=== PATIENT | female | born 1990 | race Caucasian/White ===

== ENCOUNTER 2020-12-09 11:09 | Outpatient (CLI) | payer BC, SELFPAY ==
[2020-12-09 11:40] LABS: Basophils Percent Auto 0.2 % (0.2-1.2); Eosinophils Absolute Auto 0.1 K/mm3 (0-0.3); Eosinophils Percent Auto 0.6 % (0-4.4); Hematocrit 33.2 % (37.0-47.0); Hemoglobin 10.9 g/dL (12.0-15.0); Immature Granulocyte Absolute 0.07 K/mm3 (0.00-0.031); Immature Granulocyte Percent A 0.8 % (0-0.5); Lymphocytes Absolute Auto 1.61 K/mm3 (0.9-3.2); Lymphocytes Percent Auto 18.1 % (18.3-44.2); Mean Corpuscular HGB Conc 32.8 g/dl (32-36); Mean Corpuscular Hemoglobin 28.9 pg (26-34); Mean Corpuscular Volume 88.1 fl (80-100); Mean Platelet Volume 10.3 fl (7.4-10.4); Monocytes Absolute Auto 0.8 K/mm3 (0.1-0.6); Monocytes Percent Auto 8.7 % (2.6-8.5); Neutrophils Absolute Auto 6.4 K/mm3 (1.3-6.7); Neutrophils Percent Auto 71.6 % (45.5-73.1); Platelet Count Result 206 k/mm3 (150-375); Red Blood Count 3.77 M/mm3 (4.2-5.4); Red Cell Distribution Width 12.9 % (11.5-14.5); White Blood Count 8.9 K/mm3 (4.5-10.0)
[2020-12-09 12:34] LABS: HIV 1/2 Ab P24 Ag Result Negative (Negative)
[2020-12-12 10:35] LABS: Rapid Plasma Reagin Non-Reactive (NonReactive)
== END 2020-12-09 11:10 | disposition home or self-care (01) ==
LOC: ANHLAB 11:11
PROVIDERS: PCP Family Medicine; Visit Provider Student in an Organized Health Care Education/Training Program
DX: Z34.90 Encounter for supervision of normal pregnancy, unspecified, unspecified trimester (principal)
CPT/HCPCS: 36415; 85025; 86592; 86703; G0432

== ENCOUNTER 2021-01-16 13:18 | Inpatient (IN) | payer BC, SELFPAY ==
[2021-01-16] VITALS (172 sets, daily range): BP systolic 59–137; BP diastolic 27–124; PULSE 54–247; TEMP 36.2–36.6; O2SAT 87–100; BMI 31.6
--- NOTE | 2021-01-16 14:15 | LDADM ---
This patient, Isabelle Shields, was admitted to Labor/Delivery/Recovery 109 on 01/16/21 at 13:18. Plans for labor, pain management and were discussed with patient. Patient/family oriented to hospital policies and general routines including ID bracelet, bed and alarms, visiting hours, pain management, procedures, bathroom and other care routines, personal items, smoking policy, room service/diet and guest tray routines, security routines, and visiting hours. Patient/Family are encouraged to report perceived risks to care and to ask questions if they do not understand what they are told or what they should do. See OBIX for further documentation.
[2021-01-16 14:32] LABS: Basophils Percent Auto 0.1 % (0.2-1.2); Eosinophils Percent Auto 0.3 % (0-4.4); Hematocrit 33.2 % (37.0-47.0); Hemoglobin 10.8 g/dL (12.0-15.0); Immature Granulocyte Absolute 0.13 K/mm3 (0.00-0.031); Immature Granulocyte Percent A 1.4 % (0-0.5); Lymphocytes Absolute Auto 1.54 K/mm3 (0.9-3.2); Lymphocytes Percent Auto 17.1 % (18.3-44.2); Mean Corpuscular HGB Conc 32.5 g/dl (32-36); Mean Platelet Volume 11.1 fl (7.4-10.4); Monocytes Absolute Auto 0.6 K/mm3 (0.1-0.6); Monocytes Percent Auto 6.9 % (2.6-8.5); Neutrophils Absolute Auto 6.7 K/mm3 (1.3-6.7); Neutrophils Percent Auto 74.2 % (45.5-73.1); Platelet Count Result 212 k/mm3 (150-375); Red Blood Count 3.86 M/mm3 (4.2-5.4); Red Cell Distribution Width 14.2 % (11.5-14.5)
[2021-01-16] MEDS: LACTATED RINGERS 1,000 ML 125 ML IV CONT ×5 (15:56→21:49)
[2021-01-16] MEDS: OXYTOCIN 30 UNITS/NS 500 ML 30 UNITS/500 ML BAG IV CONT (15:56)
--- NOTE | 2021-01-16 17:02 | WPDANESEPP ---
Anes - Eval Pre Procedure Procedure: Labor epidural Date/Time: 01/16/21 17:02 Surgeon: Issac Preop Diagnosis: Abd pain with contractions Pre Op Diagnosis: Labor Patient Data Age: 30 Gender: F Height: 1.6 m Weight: 81 kg Last Vital Signs Temp 97.4 F L 01/16/21 17:02 Pulse 86 01/16/21 17:00 BP 112/72 01/16/21 17:00 Pulse Ox 100 01/16/21 17:00 Allergies Allergy/AdvReac Type Severity Reaction Status Date / Time No Known Allergies Allergy Verified 01/13/21 12:37 Home Medications Medication Instructions Recorded Confirmed Type docusate sodium 100 mg capsule 100 mg PO DAILY 06/03/20 01/13/21 History prenat.vits,hilton,bpl-[id number] 1 tablet PO DAILY 06/03/20 01/13/21 History Laboratory Tests 01/16/21 01/16/21 01/16/21 13:56 13:56 13:56 WBC 9.0 K/mm3 K/mm3 (4.5-10.0) RBC 3.86 M/mm3 L M/mm3 (4.2-5.4) Hgb 10.8 g/dL L g/dL (12.0-15.0) Hct 33.2 % L % (37.0-47.0) MCV 86.0 fl fl (80-100) MCH 28.0 pg pg (26-34) MCHC 32.5 g/dl g/dl (32-36) RDW 14.2 % % (11.5-14.5) Plt Count 212 k/mm3 k/mm3 (150-375) MPV 11.1 fl H fl (7.4-10.4) Immature Gran % (Auto) 1.4 % H % (0-0.5) Neut % (Auto) 74.2 % H % (45.5-73.1) Lymph % (Auto) 17.1 % L % (18.3-44.2) [place] % (Auto) 6.9 % % (2.6-8.5) Eos % (Auto) 0.3 % % (0-4.4) Baso % (Auto) 0.1 % L % (0.2-1.2) Lymph # (Auto) 1.54 K/mm3 K/mm3 (0.9-3.2) [place] # (Auto) 0.6 K/mm3 K/mm3 (0.1-0.6) Eos # (Auto) 0.0 K/mm3 K/mm3 (0-0.3) Baso # (Auto) 0.0 K/mm3 K/mm3 (0.0-0.1) Abs Immat Gran (auto) 0.13 K/mm3 H K/mm3 (0.00-0.031) Absolute Neuts (auto) 6.7 K/mm3 K/mm3 (1.3-6.7) Absolute Nucleated RBC 0.0 K/mm3 K/mm3 (0.0-0.012) Nucleated RBC % 0.0 % % (0.0-0.2) RPR Pending Blood Type O Positive Antibody Screen Negative Patient hx anesthesia problems: none Family hx anesthesia problems: none PMFSH Past Medical History Medical History Active labor at term Encounter for supervision of normal first in third trimester Irregular contractions Normal spontaneous vaginal delivery Prolonged latent phase of labor Surgical History Surgical History [place] teeth removed Family History Family History Grandparent Family history of malignant neoplasm of breast Family history of Alzheimer's disease Heart disease Social History Social History Smoking status: Never smoker Second hand tobacco smoke exposure: No Alcohol intake: current Substance use: never Spiritual care concerns: No Exam Day of Procedure 01/16/21 17:02 Patient weight: overweight Airway: Mallampati scale class II Neurological: alert and oriented
[2021-01-16] MEDS: ONDANSETRON INJ 4 MG/2 ML VIAL IV PUSH (17:36)
[2021-01-16] MEDS: PHENYLEPHRINE 1,000 MCG/10 ML SYRINGE 100 MCG IV PUSH ×5 (17:37→18:29)
[2021-01-16] MEDS: ePHEDrine sulfate INJ 50 MG/ML AMPUL IV PUSH ×2 (20:07→20:08)
--- NOTE | 2021-01-16 23:41 | PM.IMHP ---
H&P: HPI History of Present Illness Date/Time: 01/16/21 23:41 Patient is a 30-year-old last menstrual period 04/09/2020 currently 39 weeks and 1 day gestation. Patient is dated by an ultrasound on 06/10/20 at 7 weeks gestation. Patient presented to labor and delivery with complaints of leakage of fluid. Patient reports waking with abdominal cramping at approximately 4:00 a.m., however, denies contractions. She subsequently reports onset of leakage of clear fluid approximately 6:30 a.m. She reports development of some contractions at approximately 11:00 a.m. Patient was noted to be grossly ruptured at time of arrival to L&D and was admitted. Denies any vaginal bleeding. Reports good movement. Chief Complaint: SROM Early labor Review of Systems Review of Systems: All systems reviewed & are unremarkable except as noted in HPI and below Constitutional: Constitutional: Reports as per HPI, Reports no additional constitutional complaints, Denies chills, Denies fever(s), Denies headache(s) and Denies night sweats Eyes: Eyes: Reports as per HPI and Reports no additional eye complaints ENT: Reports system reviewed and no additional complaints, except as documented, Reports as per HPI, Reports Normal hearing present and Denies headache(s) Cardiovascular: Cardiovascular: Reports as per HPI, Reports no additional cardiovascular complaints, Denies chest pain and Denies dyspnea Respiratory: Respiratory: Reports as per HPI, Reports no additional respiratory complaints, Denies cough and Denies dyspnea Gastrointestinal: Gastrointestinal: Reports as per HPI, Reports no additional gastrointestinal complaints, Denies abdominal pain, Denies change in bowel habits, Denies change in stool character, Denies nausea and Denies vomiting Genitourinary: Genitourinary: Reports no additional female genitourinary complaints, Reports as per HPI, Denies abnormal vaginal bleeding, Denies genital lesions, Denies hot flashes, Denies dyspareunia, Denies pelvic pain, Denies sexual dysfunction, Denies urinary incontinence, Denies vaginal discharge, Denies vaginal dryness and Denies vaginal odor Musculoskeletal: Musculoskeletal: Reports no additional musculoskeletal complaints and Reports as per HPI Integumentary/Breasts: Skin/Breast: Reports system reviewed and no additional complaints, except as docu, Reports as per HPI, Denies breast pain and Denies nipple discharge Neurologic: Reports system reviewed and no additional complaints, except as documented, Reports as per HPI, Reports Normal hearing present and Denies headache(s) Psychiatric: Psychiatric: Reports no additional psychiatric complaints, Reports as per HPI, Denies anxiety and Denies depression Endocrine: Endocrine: Reports no additional endocrine complaints and Reports as per HPI Hematologic/Lymphatic: Hematologic/Lymphatic: Reports no additional hematologic/lymphatic complaints and Reports as per HPI Allergic/Immunologic: Allergic/Immunologic: Reports no additional allergic/immunologic complaints and Reports as per HPI PMFSH Past Medical History Medical History (Updated 01/16/21 @ 23:55 by Ruthie Davenport MD) Active labor at term Encounter for supervision of normal first in third trimester Irregular contractions Normal spontaneous vaginal delivery Prolonged latent phase of labor Surgical History Surgical History [place] teeth removed Family History Family History Grandparent Family history of malignant neoplasm of breast Family history of Alzheimer's disease Heart disease Social History Social History Smoking status: Never smoker Second hand tobacco smoke exposure: No Alcohol intake: current Substance use: never Spiritual care concerns: No Meds Home Medications and Allergies Home Medications Me
[2021-01-16] MEDS: OXYTOCIN 30 UNITS/NS 500 ML 30 UNITS/500 ML BAG 125 UNITS IV CONT (23:48)
--- NOTE | 2021-01-16 23:56 | WPDHPUPDATE1 ---
History and Physical Update Update Date/Time: 01/16/21 23:56 History and Physical has been reviewed, including an updated exam of the patient. There are NO changes in the patient's condition. Risks, benefits, and alternatives have been discussed and questions answered. Patient agrees to proceed with procedure.
--- NOTE | 2021-01-16 23:56 | PM.OBPRVD ---
OB - Delivery Note Procedure Delivery date: 01/16/21 Procedure: The patient is a 30-year-old now who presented to Labor and delivery on the morning of 01/16/2021 at 39 weeks and 1 day gestation with complaints of leakage of fluid. Patient was noted to be grossly ruptured at time of presentation. She reports onset of contractions shortly thereafter. Initial cervical exam was 1-2 cm dilated. Patient was observed for a short while during which time she made no further cervical change. Decision was made to augment labor with Pitocin. Pitocin was started and slowly titrated. Patient became uncomfortable and requested an epidural for pain management which was placed without difficulty. An IUPC was placed for enhanced monitoring. Patient made cervical change to approximately 8 cm dilated relatively quickly and then progressed to fully dilated at 10:25 p.m. Patient was encouraged to push and found to be pushing well. At 11:18 p.m., patient delivered infant head atraumatically without difficulty in JEANNIE presentation. Occiput restituted to maternal right side. Compound presentation was noted as a hand delivered alongside face. With subsequent push, the infant's neck, shoulders, and rest of body delivered without difficulty. was crying spontaneously. Infant's nose and mouth were suctioned with bulb suction. was placed on abdomen and care was assumed by awaiting nursing staff. Delayed cord clamping was performed for approximately 60 seconds. The cord was clamped and cut. A segment of cord was collected for cord gases. Cord blood was collected. The placenta was then delivered spontaneously and intact. Uterine fundus was noted to be firm with massage. On inspection, a 1st degree perineal laceration was noted. This laceration was repaired with 2-0 Vicryl in usual fashion. Excellent hemostasis was noted. Estimated blood loss for entire delivery was 150 cc. The infant was a live-born female infant, Apgars 9 and 9, weighing 7 lb 4 oz. Both mother and baby doing well at end of delivery. events: Labor Augmentation and Premature Rupture of Membrane Delivery augmentation: pitocin Delivery monitor: external FHT, external uterine and internal uterine Route of delivery: Episiotomy description: None Laceration Description: Perineal - 1st Degree Delivery repair: vicryl (2-0 vicryl) Specimen: Yes (cord gases, cord blood) Quantitative Blood Loss (ml): 150 Anesthesia type: Epidural Disposition: floor Complications: No immediate complications Baby Date of : 01/16/21 Time of : 23:18 Weeks of gestation at delivery: 39 (39.1) Infant gender: Female Weight (pounds): 7 Weight (ounces): 4 presentation: compound ( hand delivered alongside face) position: Right Occiput Anterior Placenta delivery description: Spontaneous cord vessel description: 3 Vessels and Delayed Cord Clamping score one minute: 9 score five minutes: 9
[2021-01-17] VITALS (7 sets, daily range): BP systolic 98–107; BP diastolic 53–74; PULSE 56–70; RESP 14–18; TEMP 36.2–36.9; O2SAT 98–100
[2021-01-17] MEDS: IBUPROFEN 600 MG TABLET PO ×4 (01:53→20:52)
[2021-01-17] MEDS: WITCH HAZEL 40 PADS 1 PAD TOPICAL (01:53)
[2021-01-17] MEDS: BENZOCAINE 20% AER SPR (*SP) 56 GM CAN 1 SPRAY TOPICAL (01:53)
--- NOTE | 2021-01-17 07:43 | WPDANLDPN2 ---
Anes-Prog Note L&D Date/Time: 01/17/21 07:43 Comfortable throughout: labor and delivery Neuraxial method: epidural Epidural/Spinal procedure site: clean & non-tender Neuro status: Neuro function grossly intact. Cardiovascular status: normal Respiratory status: normal Airway patency: baseline Mental status: baseline Post-Op hydration status: normal Vital Signs: Last Vital Signs Temp 36.9 C 01/17/21 02:25 Pulse 68 01/17/21 02:25 Resp 14 01/17/21 02:25 BP 101/64 01/17/21 02:25 Pulse Ox 98 01/17/21 02:25 Pain score (VAS): 2 I/O: Intake & Output 01/16/21 01/16/21 01/17/21 15:59 23:59 07:59 Intake Total 4000 1000 Output Total 98 Balance 4000 902 Post-procedural complaints: none Patient feedback: Patient satisfied with anesthetic care.
[2021-01-17] MEDS: DOCUSATE SODIUM 100 MG CAPSULE PO ×2 (08:11→14:27)
[2021-01-17 10:05] LABS: Rapid Plasma Reagin Non-Reactive (NonReactive)
[2021-01-17] MEDS: ACETAMINOPHEN 325 MG TABLET 650 MG PO ×2 (10:36→16:19)
--- NOTE | 2021-01-17 11:32 | PM.OBPNVD ---
OB - PN: Subj Subjective Date/time seen: 01/17/21 11:32 Patient doing well. Pain well controlled medication. Minimal lochia. Ambulating without difficulty. OB - PN: Obj Data Labs CBC & Chem 7: 01/16/21 13:56 Labs: Laboratory Results - last 24 hr 01/16/21 01/16/21 01/16/21 13:56 13:56 13:56 WBC 9.0 RBC 3.86 L Hgb 10.8 L Hct 33.2 L MCV 86.0 MCH 28.0 MCHC 32.5 RDW 14.2 Plt Count 212 MPV 11.1 H Immature Gran % (Auto) 1.4 H Neut % (Auto) 74.2 H Lymph % (Auto) 17.1 L [place] % (Auto) 6.9 Eos % (Auto) 0.3 Baso % (Auto) 0.1 L Lymph # (Auto) 1.54 [place] # (Auto) 0.6 Eos # (Auto) 0.0 Baso # (Auto) 0.0 Abs Immat Gran (auto) 0.13 H Absolute Neuts (auto) 6.7 Absolute Nucleated RBC 0.0 Nucleated RBC % 0.0 RPR Non-reactive Blood Type O Positive Antibody Screen Negative OB - PN A/P Assessment and Plan (1) Normal spontaneous vaginal delivery: Code(s): O80 - Encounter for full-term uncomplicated delivery Status: Acute Assessment and Plan: doing well continue routine care anticipate dc home tomorrow Time Spent With Patient Time: Total time spent is greater than 50% in coordination of care (as documented) at patient's floor/unit and/or counseling patient: Exam Const: General: cooperative, healthy appearing, comfortable and no acute distress GI: GI Palp: Yes Soft to palpation and No Tenderness to palpation present (GI) Other: fundus firm below umbilicus Extrem: Right lower extremity: no edema Left lower extremity: no edema Other: no calf tenderness
[2021-01-17] MEDS: HYDROcodone/acetaminophen (*CRX) 5-325 MG TABLET 1 TAB PO (20:52)
[2021-01-18 06:00] LABS: Hematocrit 29.1 % (37.0-47.0); Hemoglobin 9.4 g/dL (12.0-15.0)
[2021-01-18 08:15] VITALS: BP 119/87; PULSE 70; RESP 16; TEMP 37.1; O2SAT 99
--- NOTE | 2021-01-18 08:21 | PM.OBPNVD ---
OB - PN: Subj Subjective Date/time seen: 01/18/21 08:21 She is bottle feeding. Baby is doing well. Patient comments: pain well controlled, tolerating diet and other (Decreasing lochia.) baby status: doing well OB - PN: Obj Data Labs CBC & Chem 7: 01/18/21 05:07 Labs: Laboratory Results - last 24 hr 01/16/21 01/18/21 13:56 05:07 Hgb 9.4 L Hct 29.1 L RPR Non-reactive OB - PN A/P Plan day: 2 Plan: discharge home and other Comments: Patient doing well. Follow up 4-6 weeks. Discharge instructions provided. Time Spent With Patient Time: Total time spent is greater than 50% in coordination of care (as documented) at patient's floor/unit and/or counseling patient: Time with patient: less than 15 minutes Exam Const: General: comfortable and no acute distress Eyes: General: appearance normal, both eyes and all related structures Resp: Effort & Inspection: normal respiratory effort GI: Inspection: normal to inspection GI Palp: No abdominal tenderness Psych: Affect: normal affect Other: Abd: fundus firm below umbilicus, nontender Perineum: healing Ext: nontender
[2021-01-18 08:30] VITALS: PULSE 70; RESP 18; O2SAT 98
[2021-01-18] MEDS: IBUPROFEN 600 MG TABLET PO (08:37)
[2021-01-18] MEDS: HYDROcodone/acetaminophen (*CRX) 5-325 MG TABLET 1 TAB PO (08:38)
[2021-01-18] MEDS: DOCUSATE SODIUM 100 MG CAPSULE PO (08:39)
[2021-01-18] MEDS: WITCH HAZEL 40 PADS 1 PAD TOPICAL (08:40)
[2021-01-18] MEDS: BENZOCAINE 20% AER SPR (*SP) 56 GM CAN 1 SPRAY TOPICAL (08:40)
[2021-01-18] MEDS: MEASLES,MUMPS,RUBELLA VACCINE 0.5 ML VIAL SUB-Q (08:41)
[2021-01-19 09:16] VITALS: BP 131/83; PULSE 65; RESP 20; TEMP 37; O2SAT 100
--- NOTE | 2021-02-10 10:42 | PM.DS ---
DS: Admitting Diagnosis Admitting Diagnosis Spontaneous rupture of membranes DS: Discharge Diagnosis Discharge Diagnosis (1) Normal spontaneous vaginal delivery: Code(s): O80 - Encounter for full-term uncomplicated delivery Status: Acute DS: Summary Hospital Course Reason for hospitalization: Spontaneous rupture of membranes. Pitocin augmentation was initiated. She had a spontaneous vaginal delivery. She did well . On day two she was tolerating regular diet, had adequate pain control and ambulating well. She was discharged home on day 2. Discharge precautions discussed. Hospital Course: Patient admitted on 01/16 with spontaneous rupture of membranes. Status at Discharge Functional status at discharge: independent ambulation Overall status at discharge: other (Recovery) Time Spent with Patient Time attestation: Total time spent providing and/or coordinating discharge services: Time spent: Less than 30 minutes Exam Const: General: comfortable and no acute distress Eyes: General: appearance normal, both eyes and all related structures Resp: Effort & Inspection: normal respiratory effort Psych: Affect: normal affect Other: Abd: fundus firm below umbilicus, nontender Perineum: healing Ext: nontender Discharge Plan Discharge Attending physician on discharge: Mik Llanos Consulting providers: Lino Cooper ; Ruthie Davenport Discharging Clinician: Mik Llanos Anticipated Discharge Date/Time: 01/18/21 08:30 Patient Disposition: Home, Self-Care Activity: pelvic rest Diet: regular Discharge Instructions: Education: Mom and Baby Guide Given to: Mother Follow-Up: Call your delivering provider's office for an appointment to be seen in: 4 Weeks Mom and baby should come to the [facility] for the follow-up appointment. Appointment Date/Time: January 19, 2021 at 9:00 am What to expect at your follow-up visit: Blood Pressure Check Physical Assessment Call [phone] if you are unable to keep your appointment time. BREAST CARE: * Wear a snug supportive bra. * For engorgement discomfort: Bottle Feeding: * May apply ice packs EPISIOTOMY/PERINEAL CARE: * Until bleeding stops, use your damon bottle after urinating * Change your pad frequently throughout the day * You may take sitz baths several times a day (fill your bathtub with warm water and soak for 20 minutes.) Do NOT bathe in the water * No tub baths until seen by your physician - You may shower ACTIVITY: * Rest as much as possible. * Do not exercise or lift anything heavier than your baby (such as laundry or other children.) * Avoid stairs or driving as much as possible. * Do not put anything into the vagina. No douching, tampons, or sexual activity until seen by physician. NOTIFY PHYSICIAN IF YOU HAVE ANY QUESTIONS OR IF ANY OF THE FOLLOWING SYMPTOMS OCCUR: * If your vaginal area becomes red, swollen, or more painful than what you have experienced in the hospital. * If your vaginal bleeding becomes foul smelling. * If your vaginal bleeding becomes more heavy than a period or if your bleeding changes from pink to bright red. However, you may pass an occasional walnut-sized clot once or twice for the first week . * If you experience a sharp, shooting pain in your calves. * If you discover a hard, reddened area on your breast or if you experience flu-like symptoms. DIET: * Eat regular, well-balanced meals. * Drink plenty of fluids daily. If , drink to thirst. Pelvic rest for 4-6 weeks. May take over the counter Ibuprofen or Tylenol for pain. Call if saturating more than a pad an hour, leg redness, pain and swelling, temperature>100.4. No strenuous activity. Recommend she take vitamins daily and take over the counter SloFe once a day for one month. Patient Instructions: Vaginal Delivery (DC) Stand Alone For
== END 2021-01-18 11:15 | disposition home or self-care (01) | DRG 807 ==
LOC: ANHLDR 13:53 → ANHOB2 01-18 08:32 → ANHLDR 01-19 11:17 → ANHOB2 01-19 11:17
PROVIDERS: Student in an Organized Health Care Education/Training Program; Admitting Provider Obstetrics & Gynecology; PCP Family Medicine; Visit Provider Obstetrics & Gynecology
DX: O42.02 Full-term premature rupture of membranes, onset of labor within 24 hours of rupture (principal); Z37.0 Single live birth; Z3A.39 39 weeks gestation of pregnancy; O70.0 First degree perineal laceration during delivery
CPT/HCPCS: 36415; 84112; 85014; 85018; 85025; 86592; 86850; 86900; 86901; 90710; A9270; J2370; J2405; J2590; J2795; J7120

== ENCOUNTER 2021-06-29 12:09 | Outpatient (CLI) | payer BC, SELFPAY ==
[2021-06-29 12:40] LABS: Hematocrit 37.8 % (37.0-47.0); Hemoglobin 12.7 g/dL (12.0-15.0); Mean Corpuscular HGB Conc 33.6 g/dl (32-36); Mean Corpuscular Hemoglobin 30.1 pg (26-34); Mean Corpuscular Volume 89.6 fl (80-100); Mean Platelet Volume 9.8 fl (7.4-10.4); Platelet Count Result 249 k/mm3 (150-375); Red Blood Count 4.22 M/mm3 (4.2-5.4); White Blood Count 7.6 K/mm3 (4.5-10.0)
[2021-06-29 13:34] LABS: Vitamin D 25 Hydroxy 49.6 ng/mL
== END 2021-06-29 12:10 | disposition home or self-care (01) ==
LOC: ANHLAB 12:11
PROVIDERS: PCP Family Medicine; Visit Provider Student in an Organized Health Care Education/Training Program
DX: N92.6 Irregular menstruation, unspecified (principal)
CPT/HCPCS: 36415; 82306; 84443; 85027

== ENCOUNTER 2022-05-15 12:12 | Emergency (ER) | payer BC, SELFPAY ==
[2022-05-15 12:15] VITALS: BP 115/66; PULSE 82; RESP 14; TEMP 36.6; O2SAT 99
--- NOTE | 2022-05-15 12:32 | ED.SKABFB ---
HPI - Skin/Abscess/Foreign Bdy General Chief complaint: Skin/Abscess/Foreign Body Stated complaint: TAMPON STUCK-STRING BROKE Time Seen by Provider: 05/15/22 12:27 History of Present Illness HPI narrative: Pt states her tampon string broke and her tampon is stuck. Pt denies other concerns. Pt has no pain or fever or foul smelling discharge. Pt did have large BM but did not notice if tampon was in stool. Related Data Home Medications Medication Instructions Recorded Confirmed No Home Medications 05/15/22 05/15/22 Allergies Allergy/AdvReac Type Severity Reaction Status Date / Time No Known Allergies Allergy Verified 05/15/22 12:24 Review of Systems Review of Systems: All systems reviewed & are unremarkable except as noted in HPI and below PMFSH Past Medical History Medical History (Updated 05/15/22 @ 12:59 by Nael Jiménez III, DO) Active labor at term Encounter for supervision of normal first in third trimester Irregular contractions Normal spontaneous vaginal delivery Prolonged latent phase of labor Surgical History Surgical History [place] teeth removed Family History Family History Grandparent Family history of malignant neoplasm of breast Family history of Alzheimer's disease Heart disease Social History Social History Smoking status: Never smoker Second hand tobacco smoke exposure: No Alcohol intake: current Substance use: never Spiritual care concerns: No Exam Const: General: healthy appearing and no acute distress Nutritional Appearance: well nourished Orientation/consciousness: patient oriented x3 Limitations: no limitations Eyes: EOM: EOMs intact bilaterally Resp: Effort & Inspection: normal respiratory effort Cardio: Rate: regular rate Rhythm: regular rhythm GI: GI Palp: Yes Soft to palpation Auscultation: normal bowel sounds : External Female Exam: normal external appearance Speculum Exam - Vagina: normal appearance of the vagina and no foreign bodies Speculum Exam - Cervix: normal appearance of the cervix and Cervical os closed Other: no fb seen cervix and surrounding vaginal henning clearly visulaized and no tampon seen. Course Vital Signs Vital signs: Vital Signs Temperature 97.8 F 05/15/22 12:15 Pulse Rate 82 05/15/22 12:15 Respiratory Rate 14 05/15/22 12:15 Blood Pressure 115/66 05/15/22 12:15 Pulse Oximetry 99 05/15/22 12:15 Oxygen Delivery Room Air 05/15/22 12:15 Temperature 97.8 F 05/15/22 12:15 Pulse Rate 82 05/15/22 12:15 Respiratory Rate 14 05/15/22 12:15 Blood Pressure 115/66 05/15/22 12:15 Pulse Oximetry 99 05/15/22 12:15 Oxygen Delivery Room Air 05/15/22 12:15 Discharge Plan Discharge Clinical Impression: Foreign body accidentally entering opening of body cavity Patient Disposition: Home, Self-Care Condition: Stable Instructions: Antibiotic Form, Vaginal Foreign Body (ED) Additional Instructions: if any pain or fould smelling discharge get rechecked Prescriptions: No Action No Home Medications Follow-up/Referrals: Danica Decker MD [Primary Care Provider] -
== END 2022-05-15 13:02 | disposition home or self-care (01) ==
PROVIDERS: Emergency Provider Emergency Medicine; PCP Family Medicine
DX: T19.2XXA Foreign body in vulva and vagina, initial encounter (principal)
CPT/HCPCS: 99282

== ENCOUNTER 2024-07-31 00:36 | Day surgery (SDC) | payer OTHER, SELFPAY ==
[2024-07-20 14:33] VITALS: BMI 23.6
--- NOTE | 2024-07-20 14:38 | PC.NURSE ---
Report to the Outpatient Waiting Room, entrance under the green pavilion located off [facility], at time _0600_ on date _[id number]_. Planned Procedure Time: _0730_.? Time changes happen often and if your time is changed the preop area will call you the afternoon before. - You and your visitor will be asked to self-screen and do not enter if you have any COVID symptoms. Please call surgeon if you need to reschedule. - A mask is optional within the hospital at this time. Patients may have clear liquids (water, carbonated beverages, clear teas, apple juice) until 3 hours prior to surgery with a maximum of 20 ounces. - No food from midnight until time of surgery and no smoking. This includes no chewing gum, candy or mints. Take only the following medications with a SIP of water on the morning of surgery: ___None DO NOT STOP ANY OF YOUR OTHER PRESCRIPTION MEDICATIONS PRIOR TO SURGERY EXCEPT THE FOLLOWING Please no make-up, nail belarusian, hairspray, perfume, deodorant, or body powder the day of surgery.? No jewelry (including any body piercings) or valuables the day of surgery, leave them at home.? Please take a shower or bath the night before, or the morning of, surgery with an antibacterial soap.? Wear comfortable, loose fitting clothing.? - Jewelry must be removed prior to entering the operating room.? Rings and piercings that are not removed may be cut off. - The hospital will not accept responsibility for valuables.? - Please leave all valuables, including medications, at home the day of surgery. If you are going home after surgery, a licensed xm1 tank driver must drive you home.? - NO public transportation without another adult if you receive anesthesia. - We recommend that an adult stay with you for 24 hours following discharge. - We also recommend that you do not drive, make important decision, drink alcoholic beverages, or take any drugs that were not prescribed by your health care provider for at least 24 hours after your discharge time. Hold all vitamins and supplements for _3__ days per __Anesthesia___. Follow any additional instructions given to you from your surgeon. Telephone instructions given to _Isabelle_and asked if any additional questions and then verbalized understanding. Patient advised to call surgeon office or pre surgery nurse liaison [phone] if any additional questions.
[2024-07-31] VITALS (12 sets, daily range): BP systolic 97–112; BP diastolic 47–70; PULSE 60–107; RESP 10–20; TEMP 36.4–36.5; O2SAT 97–100; BMI 23.3
--- OUTSIDE RECORDS SUMMARY | 2024-07-31 00:41 | XMS_ITS | Clinical Summary ---
Author Organization [employer] [address] [address] [place] [address] Phone Care Team Providers Care Youth Specialist Name Role Phone Danica Decker MD Primary Care Provider Social History Tobacco Use Types Packs/Day Years Used Date Smoking Tobacco: Never Assessed Comments Unknown Sex and Gender Information Value Date Recorded Sex Assigned at Not on file Legal Sex Female 10:02 AM CDT Gender Identity Not on file Sexual Orientation Not on file Plan of Treatment Health Maintenance Due Date Last Done Comments DTAP/TDAP/TD VACCINES (1 - Tdap) 2009 HEPATITIS B VACCINES (1 of 3 - 19+ 3-dose series) 2009 CERVICAL CANCER SCREENING 2020 INFLUENZA VACCINE (#1) 2024 HPV VACCINES Aged Out No longer eligi ble based on patient's age to complete this topic PNEUMOCOCCAL VACCINE 0-64 YEARS Aged Out No longer eligible based on patient's age to complete this topic Insurance BS BLUE ACCESS/TRUE BLUE PPO Care Teams Youth Specialist Relationship Specialty Start Date End Date Danica Decker MD [address] [place] [address] PCP - General Family Practice 09/07/20
[2024-07-31 06:35] LABS: Urine Cotinine NEGATIVE
[2024-07-31] MEDS: TRANEXAMIC ACID 1,000MG/ISO100 1,000 MG/100 ML BAG 200 MG IVPB (06:41)
[2024-07-31] MEDS: LACTATED RINGERS 1,000 ML 30 ML IV CONT ×2 (07:17→09:58)
[2024-07-31] MEDS: SCOPOLAMINE 1 MG PATCH 1 PATCH TRANSDERM (07:17)
--- NOTE | 2024-07-31 07:21 | WPDHPUPDATE1 ---
History and Physical Update Update Date/Time: 07/31/24 07:21 History and Physical has been reviewed, including an updated exam of the patient. There are NO changes in the patient's condition. Risks, benefits, and alternatives have been discussed and questions answered. Patient agrees to proceed with procedure.
--- NOTE | 2024-07-31 07:22 | W.PM.PROC2 ---
Procedure Note - Detailed Date of Procedure 07/31/24 Pre-op Diagnosis breast ptosis, micromastia Post-op Diagnosis Same Procedure Performed Bilateral augmentation mastopexy Surgeon Tanvir Reid MD Anesthesia General Findings Inverted t Superior pedicle Bilateral Evangelist Roland SoftTouch implants 360cc Right - REF# [id number] SN [id number] Left - REF# [id number] SN [id number] Description of Procedure She is here today for bilateral breast augmentation mastopexy. Previously and again today the risks, benefits, alternatives were discussed in extensive detail. I wanted her to be very realistic about the risks involved as well as expectations. We discussed aftercare and what to monitor for. Made sure answered all of her questions to her satisfaction today and consent was obtained. Marked in the preoperative holding area with their verification. The patient was taken to the operating room placed supine on the operating table. Anesthesia was provided by anesthesiology. A surgical time-out was taken. She was prepped and draped in a standard sterile fashion. Tumescent was utilized laterally to provide field block Tegaderm nipple Casillas were placed. A 15 blade used to make an incision just superior to the inframammary fold leaving a cusp of de-epithelized tissue at the t junction. Dissection was continued until the chest wall as identified. I incised the pectoralis major along its inferior border and completely released the inferior border leaving the medial border intact. I created a subpectoral pocket in the appropriate dimensions based on our preoperative planning for the implant. I then copiously irrigated with saline solution and verified a strict hemostasis. Next the use a triple antibiotic and Betadine containing solution to irrigate the pocket. I washed my gloves with the triple antibiotic and Betadine solution. We washed the implant immediately upon opening it with this solution and only opened it when we needed it. I used implant funnel and no-touch technique. The implant was introduced into the pocket using the funnel. Having verified positioning of the implant this was closed using 2-0 PDS. I tailor tacked the breast into position. Placed her in a sitting position. Verified the nipple-areolar location based on preoperative planning as well as intraoperative observations and measurements in full agreement. Suction lipectomy was completed laterally with a 4mm angelito cannula. This was based on preoperative planning, intraoperative observation, and rolling pinch which was in full agreement. She was placed supine. I de-epithelialized the pedicle. I then removed the inferior central portion of the breast need making sure the implant was well protected. I elevated medial and lateral tissue flaps as well for planned closure. I closed along the IMF with 2-0 Stratafix. Along the vertical with 2-0 PDS. I closed around the areola with 3-0 strata fix. 3-0 Monocryl along the vertical. 3-0 Stratafix along the IMF. I finally closed everything with running subcuticular 4-0 Monocryl and tissue glue. Fluffs and surgical bra were placed. Estimated Blood Loss 40 Drains No Packing No Pathology None sent Complications No immediate complications Condition Stable Disposition PACU
--- NOTE | 2024-07-31 07:24 | WPDANESEPPF ---
Anes - Initial Pre Proc Eval Procedure: Operation Date: 07/31/24 07:30 Proposed Procedures p Bilateral Breast Augmentation, - Tanvir Reid MD s Bilateral Breast Mastopexy - Tanvir Reid MD Date/Time: 07/31/24 07:24 Surgeon: Tanvir Reid MD Pre Op Diagnosis: breast ptosis, micromastia Patient Data Age: 33 Gender: F Height: 1.6 m Weight: 59.9 kg Last Vital Signs Temp 36.5 C 07/31/24 06:31 Pulse 89 07/31/24 06:31 BP 97/54 L 07/31/24 06:31 Pulse Ox 100 07/31/24 06:31 O2 Del Method Room Air 07/31/24 06:31 Allergies Allergy/AdvReac Type Severity Reaction Status Date / Time No Known Allergies Allergy Verified 07/20/24 14:31 Home Medications ?Medication ?Instructions ?Recorded ?Confirmed ?Type Saccharomyces boulardii 250 mg 5,000 mmu cells PO DAILY 08/29/22 07/20/24 History capsule (Daily Probiotic (S. boulardii)) digestive enzymes 1 cap PO DAILY 07/20/24 07/20/24 History multivitamin (Daily Multi-Vitamin 1 tablet PO DAILY 07/20/24 07/20/24 History tablet) psyllium husk 0.52 gram capsule 0.52 g PO DAILY 07/20/24 07/20/24 History (Daily Fiber) Laboratory Tests 07/31/24 06:10 Cotinine Negative Patient hx anesthesia problems: none Family hx anesthesia problems: none Results Review: All pre-operative results and documents have been reviewed as part of the pre-operative evaluation. [facility] Past Medical History Medical History Irregular contractions Normal spontaneous vaginal delivery Active labor at term Prolonged latent phase of labor Encounter for supervision of normal first in third trimester Surgical History Surgical History [place] teeth removed Family History Family History Grandparent Family history of malignant neoplasm of breast Family history of Alzheimer's disease Heart disease Social History Social History Smoking status: Never smoker Second hand tobacco smoke exposure: No Alcohol intake: current Substance use: never Lack of Transportation: No Lack of Food: Never True Current Housing: I Have Housing Concerned About Future Housing: No Difficulty Paying Gas/Electric Bills: No Difficulty Paying for Meds: No Currently Unemployed: No Education: Bachelor's Degree Difficulty w/ Childcare or Family Care: No Living arrangements: with family Spiritual care concerns: No Anes - Eval Final PreProcedure Day of Procedure 07/31/24 07:24 Patient weight: normal Heart: regular rate and rhythm Lungs: clear to auscultation Airway: Mallampati scale class 1 Neurological: alert and oriented Last oral intake: >/= 8 hours ASA classification: I Emergent: no Anesthesia type and monitoring: general LMA and standard monitoring Results Review: All pre-operative results and documents have been reviewed as part of the pre-operative evaluation. Informed Consent: The patient's anesthetic plan and its attendant risks and benefits were discussed with the patient/family/POA. Questions were solicited and answers provided to the satisfaction of the patient/family/POA.
[2024-07-31 07:27] LABS: BEDSIDEPREGUCG Negative (Negative)
[2024-07-31] MEDS: ceFAZolin 2 GM/D5W 50 ML 2 GM/50 ML BAG IVPB (07:29)
[2024-07-31] MEDS: NACL 0.9% IRRIG POUR BOTTLE 900 ML, GENTAMICIN SULFATE INJ 160 MG, ceFAZolin 2 GM, POVI... IRRIGATION (08:04)
[2024-07-31] MEDS: LACTATED RINGERS IRRIG 1,000 ML, LIDOCAINE 1% LOCAL INJ 50 ML, EPINEPHrine HCL INJ 1 MG... INFILTRATE (08:09)
[2024-07-31] MEDS: fentaNYL CITRATE INJ (*CRX) 100 MCG/2 ML VIAL 25 MCG IV PUSH ×4 (10:13→10:43)
[2024-07-31] MEDS: oxyCODONE HCL (*CRX) 5 MG TAB IR PO (11:30)
== END 2024-07-31 12:39 | disposition home or self-care (01) ==
PROVIDERS: Visit Provider Surgery Plastic and Reconstructive Surgery
PROC: (CPT 19325; principal; 2024-07-31 07:30)
PROC: (CPT 19316; 2024-07-31 07:30)
DX: Z41.1 Encounter for cosmetic surgery (principal); N64.82 Hypoplasia of breast; N64.81 Ptosis of breast
CPT/HCPCS: 19325; 19316; 80307; A9270; J0171; J0690; J1100; J1171; J1200; J1580; J2003; J2004; J2250; J2405; J2704; J3010; J7030; J7120